=== PATIENT | female | born 1940 | race Caucasian/White ===

== ENCOUNTER 2021-12-14 00:01 | Emergency (ER) | payer MEDICARE ==
[2021-12-14 00:10] VITALS: BP 145/70; PULSE 60
== END 2021-12-14 02:35 | disposition home or self-care (01) ==
LOC: JP.ED 00:01
DX: R04.0 Epistaxis (principal); D68.9 Coagulation defect, unspecified; Z88.1 Allergy status to other antibiotic agents; Z88.2 Allergy status to sulfonamides; Z88.5 Allergy status to narcotic agent; Z91.041 Radiographic dye allergy status; Z79.82 Long term (current) use of aspirin; Z79.899 Other long term (current) drug therapy
CPT/HCPCS: 30903; 36415; 80048; 85025; 99283-25; 99284

== ENCOUNTER 2023-12-13 11:13 | Emergency (ER) | payer MEDICARE ==
[2023-12-13 11:32] VITALS: PULSE 60
[2023-12-13] MEDS ORDERED: Acetaminophen 500 MG Tab PO ONE (12:53)
[2023-12-13 14:13] VITALS: BP 130/65
== END 2023-12-13 15:08 | disposition home or self-care (01) ==
LOC: JP.ED 11:13
DX: S00.03XA Contusion of scalp, initial encounter (principal); E78.00 Pure hypercholesterolemia, unspecified; I10 Essential (primary) hypertension; M19.90 Unspecified osteoarthritis, unspecified site; W19.XXXA Unspecified fall, initial encounter
CPT/HCPCS: 70450; 72072; 72100; 72125; 72220; 76377; 99284; A9270